=== PATIENT | female | born 1995 | race African-American/Black ===

== ENCOUNTER 2019-03-26 05:48 | Inpatient (IN) ==
[2019-03-26] MEDS ORDERED: MEPERIDINE 50 MG/1 ML VIAL IV PRN (05:57)
[2019-03-26] MEDS ORDERED: ONDANSETRON 4 MG/2 ML VIAL IV PRN ×2 (05:57→19:05)
[2019-03-26] MEDS ORDERED: BUTORPHANOL 2 MG/ML VIAL IV PRN (05:57)
[2019-03-26] MEDS ORDERED: LACTATED RINGERS 250 ML IV ONE (05:57)
[2019-03-26] MEDS ORDERED: LACTATED RINGERS 500 ML IV PRN (05:57)
[2019-03-26] MEDS ORDERED: OXYTOCIN/LR 20 UNIT/1,000 ML BAG IV SCH (06:00)
[2019-03-26] MEDS: LACTATED RINGERS 1,000 ML IV SCH ×2 (06:26→14:58)
[2019-03-26 06:34] LABS: Basophils % 0.2 % (0.0-0.8); Eosinophils # 0.1 10*3/uL (0.0-0.87); Eosinophils % 0.8 % (0.00-10.9); Hematocrit 39.8 VOL% (35.7-47.0); Hemoglobin 13.3 GM/DL (12.0-16.0); Immature Granulocytes % 0.4 %; Immature Granulocytes Absolute 0.04 #; Lymphocytes # 1.7 10*3/uL (1.4-4.0); Lymphocytes % 18.8 % (21.3-54.2); Mean Corpuscular HGB Conc 33.4 GM/DL (32-36); Mean Corpuscular Volume 94.8 FL (87-102); Mean Platelet Volume 11.1 FL (9.6-12.0); Monocytes % 7.8 % (1.7-12.7); Platelet Count 147 T/CUMM (130-400); Red Cell Distribution Width 12.7 % (9.3-17.3); White Blood Count 9.3 T/CUMM (4-12)
[2019-03-26 07:07] LABS: Albumin 3.4 G/DL (3.4-5.0); Bilirubin,Total 0.5 MG/DL (0.2-1.0); Calcium 9.6 MG/DL (8.5-10.1); Osmolality,Calculated 277.3 MOS/KG (273-304); Total Protein 7.8 G/DL (6.4-8.3)
[2019-03-26] MEDS ORDERED: hydrOXYzine HCL 25 MG/1 ML VIAL IM PRN (10:59)
[2019-03-26] MEDS ORDERED: diphenhydrAMINE 50 MG/1 ML VIAL IV PRN ×2 (10:59)
[2019-03-26] MEDS ORDERED: LACTATED RINGERS 1,000 ML IV ONE (10:59)
[2019-03-26] MEDS ORDERED: CITRIC ACID/SODIUM CITRATE 30 ML UDCUP PO ONE (10:59)
[2019-03-26] MEDS ORDERED: ePHEDrine 50 MG/ML AMP IV PRN ×2 (10:59)
[2019-03-26] MEDS ORDERED: PROMETHAZINE 25 MG/1 ML VIAL IM ONE (10:59)
[2019-03-26] MEDS ORDERED: FAMOTIDINE 20 MG/2 ML VIAL IV ONE (10:59)
[2019-03-26] MEDS ORDERED: NALOXONE 0.4 MG/ML VIAL IV PRN (10:59)
[2019-03-26] MEDS ORDERED: fentaNYL 2 MCG/ROPIV 0.2% EPID 100 ML EPIDURAL SCH (11:00)
[2019-03-26 13:13] LABS: Apearance,Urine Clear (Clear); Urine Color Yellow (Yellow)
[2019-03-26 13:14] LABS: Glucose,Urine (UA) Negative (Negative); Ketones,Urine 2+ mg/dL (Negative); Protein,Urine 1+ MG/DL
[2019-03-26 13:15] LABS: Bilirubin,Urine Negative (Negative); Blood, Urine Large mg/dL (Negative); Nitrite,Urine Negative (Negative); RBC,Urine TNTC /HPF (0-4); Squamous Epithelial Cell,Urine Rare /HPF (0-10); WBC,Urine Rare /HPF (0-6)
[2019-03-26 13:16] LABS: Mucus,Urine Trace /LPF (Occasional)
[2019-03-26] MEDS ORDERED: LIDOCAINE 1% 50 ML VIAL ONE (17:38)
[2019-03-26] MEDS ORDERED: miSOPROStol 200 MCG TABLET ONE (17:38)
[2019-03-26] MEDS ORDERED: CARBOPROST TROMETHAMINE 250 MCG/ML AMP IM ONE (17:39)
[2019-03-26] MEDS ORDERED: METHYLERGONOVINE 0.2 MG/1 ML AMP ONE (17:39)
[2019-03-26] MEDS ORDERED: miSOPROStol 200 MCG TABLET RECTAL ONE (18:59)
[2019-03-26] MEDS ORDERED: LANOLIN 50% CREAM 0.3 OZ TUBE TOP PRN (19:05)
[2019-03-26] MEDS ORDERED: HYDROCORTISONE 2.5% RECTAL CREAM 30 GM TUBE TOP PRN (19:05)
[2019-03-26] MEDS ORDERED: BISACODYL 10 MG SUPP RECTAL PRN (19:05)
[2019-03-26] MEDS ORDERED: RHO(D) IMMUNE GLOBULIN 300 MCG SYRINGE IM ONE (19:05)
[2019-03-26] MEDS ORDERED: MEASLES/MUMPS/RUBELLA VACCINE 0.5 ML VIAL SUBCUT ONE (19:05)
[2019-03-26] MEDS ORDERED: ACETAMINOPHEN 325 MG TABLET PO PRN (19:05)
[2019-03-26] MEDS ORDERED: WITCH HAZEL PADS 100/JAR TOP PRN (19:05)
[2019-03-26] MEDS ORDERED: oxyCODONE/ACETAMINOPHEN 5-325 MG TABLET PO PRN ×2 (19:05)
[2019-03-26] MEDS ORDERED: DIPH/TET/ACEL PERT BOOSTER VACCINE 0.5 ML VIAL IM ONE (19:05)
[2019-03-26] MEDS ORDERED: OXYTOCIN/LR 20 UNIT/1,000 ML BAG IV ONE (19:05)
[2019-03-26] MEDS: DOCUSATE SODIUM 100 MG CAPSULE PO SCH (21:29)
[2019-03-26] MEDS: IBUPROFEN 800 MG TABLET PO PRN (22:42)
[2019-03-27 05:34] LABS: Basophils % 0.2 % (0.0-0.8); Eosinophils % 0.2 % (0.00-10.9); Hematocrit 30.7 VOL% (35.7-47.0); Hemoglobin 10.1 GM/DL (12.0-16.0); Immature Granulocytes % 0.6 %; Immature Granulocytes Absolute 0.08 #; Lymphocytes # 1.4 10*3/uL (1.4-4.0); Lymphocytes % 10.8 % (21.3-54.2); Mean Corpuscular HGB Conc 32.9 GM/DL (32-36); Mean Corpuscular Volume 95.3 FL (87-102); Mean Platelet Volume 11.2 FL (9.6-12.0); Monocytes % 7.3 % (1.7-12.7); Neutrophils % 80.9 % (38.7-73.9); Platelet Count 113 T/CUMM (130-400); Red Blood Count 3.22 MC/CUMM (3.8-5.5); Red Cell Distribution Width 12.5 % (9.3-17.3); White Blood Count 13.2 T/CUMM (4-12)
[2019-03-27] MEDS: IBUPROFEN 800 MG TABLET PO PRN ×2 (08:00→22:59)
[2019-03-27] MEDS: DOCUSATE SODIUM 100 MG CAPSULE PO SCH ×2 (08:02→20:37)
[2019-03-27] MEDS: BENZOCAINE 20%/MENTHOL 0.5% SPRAY 56 GM CAN TOP PRN (11:51)
[2019-03-28 07:37] VITALS: BP 106/63
[2019-03-28] MEDS: DOCUSATE SODIUM 100 MG CAPSULE PO SCH (10:30)
[2019-03-28] MEDS: IBUPROFEN 800 MG TABLET PO PRN (13:30)
[2019-03-28] MEDS: BENZOCAINE 20%/MENTHOL 0.5% SPRAY 56 GM CAN TOP PRN (13:30)
== END 2019-03-28 13:50 | disposition home or self-care (01) | DRG 542 ==
LOC: N.LDOUT 05:48 → N.LD 05:50 → N.OB 21:26
PROVIDERS: ADMIT Obstetrics & Gynecology; ATTEND Obstetrics & Gynecology